=== PATIENT | female | born 1985 | race Hispanic/Latino ===

== ENCOUNTER 2020-01-08 11:05 | Outpatient (CLI) | payer OTHER ==
--- NOTE | 2020-01-08 12:37 | CT ---
CT ANGIOGRAM OF BRAIN WITH AND WITHOUT CONTRAST: DATE: 01/08/2020 HISTORY: 34-year-old female with pulsatile tinnitus COMPARISON: None TECHNIQUE: Noncontrast brain CT performed. Iodinated IV contrast injected. Bolus chasing technique scan performed through the head. Coronal and sagittal 3-D MIP reconstructions. FINDINGS: There is no evidence of acute intra-axial or extra-axial hemorrhage. There is no midline shift or any other mass effect. There is no extra-axial fluid collection. The ventricles are normal in size and configuration. The tympanomastoid cavities, and the upper portions of the paranasal sinuses included in these images, are grossly clear. Calvarium is intact. The superior sagittal sinus, torcular Herophili, right transverse and sigmoid sinuses, straight sinus delvin vein of [place], and internal cerebral veins, are normal. The left transverse and sigmoid sinuses are very attenuated, and difficult to visualize. The left jugular bulb has flow. It is smalle r than the contralateral right. 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 An terior and posterior circulation arteries of [place] appear normal. There is no evidence of aneurysm. No AVM. IMPRESSION: Negative
[2020-01-08] MEDS ORDERED: Iopamidol-370 76% 500 ML 1 ML ONE (13:54)
== END 2020-01-08 11:06 | disposition home or self-care (01) ==
LOC: BICCT 11:05
PROVIDERS: ATTEND Nurse Practitioner Acute Care
DX: H93.A9 Pulsatile tinnitus, unspecified ear (principal)
CPT/HCPCS: 70496; Q9967